=== PATIENT | female | born 2000 | race Asian ===

== ENCOUNTER 2022-04-11 13:15 | Outpatient (CLI) | payer OTHER, SELFPAY ==
[2022-04-11 17:59] LABS: Chloride* 106 mmol/L (96-114); Potassium* 4.1 mmol/L (3.6-5.1); Sodium* 138 mmol/L (135-149)
[2022-04-11 18:02] LABS: Blood Urea Nitrogen* 17 mg/dL (5-24); Carbon Dioxide* 25 mmol/L (20-32); Creatinine* 0.7 mg/dL (0.5-1.5); Estimated Glomerular Filt Rate 126 ml/min; Glucose* 94 mg/dL (60-115)
== END 2022-04-11 13:16 | disposition home or self-care (01) ==
LOC: NFLDUCREF 13:16
PROVIDERS: Visit Provider Registered Nurse
DX: R55 Syncope and collapse (principal)
CPT/HCPCS: 80048; 87086